=== PATIENT | female | born 1950 | race Caucasian/White ===

== ENCOUNTER 2020-01-25 18:24 | Inpatient (IN) | payer MEDICARE, BC ==
[~2020-01-25] VITALS: Ht 165.1 cm; Wt 65.9 kg
[2020-01-25] MEDS ORDERED: ondansetron/PF 4mg/2ml inj IV ONE (18:35)
--- NOTE | 2020-01-25 18:51 | NUR ---
PT'S DAUGHTER PHONE NUMBER [phone] Addendum: 01/25/20 at 1852 by KINA PT'S DAUGHTER MORIAH, PHONE NUMBER [phone]
[2020-01-25 19:04] LABS: BASOPHILS % (AUTO) 0.7 % (0-1); EOSINOPHILS % (AUTO) 0.3 % (0-6); HEMATOCRIT 36.8 % (35.0-45.0); LYMPHOCYTES % (AUTO) 14.3 % (21-51); MEAN CORPUSCULAR HGB CONC 32.8 g/dL (33.0-36.5); MEAN CORPUSCULAR VOLUME 94.6 FL (78-98); MEAN PLATELET VOLUME 9.6 FL (7.4-10.4); MONOCYTES # (AUTO) 0.6 X10'3 (0-0.9); MONOCYTES % (AUTO) 8.5 % (2-12); NEUTROPHILS # (AUTO) 5.3 X10'3 (1.8-7.7); NEUTROPHILS % (AUTO) 76.2 % (42-75); PLATELET COUNT 169 X10'3 (140-440); RED BLOOD COUNT 3.89 X10'6 (4.20-5.60)
[2020-01-25] MEDS: morphine 2 MG/ML inj. syringe IV PRN (19:12)
[2020-01-25 19:14] LABS: PARTIAL THROMBOPLASTIN TIME 24 SECONDS (22-32)
[2020-01-25 19:20] LABS: ALANINE AMINOTRANSFERASE 19 U/L (12-78); ALBUMIN 3.9 G/DL (3.4-5.0); ALBUMIN/GLOBULIN RATIO 1.4 (1.1-1.5); ALKALINE PHOSPHATASE 83 IU/L (46-116); ANION GAP 9 (8-16); ASPARTATE AMINO TRANSFERASE 18 U/L (10-37); BILIRUBIN,TOTAL 0.3 MG/DL (0.1-1.0); BLOOD UREA NITROGEN 13 MG/DL (7-18); BUN/CREATININE RATIO 13.5 (6.6-38.0); CALCIUM 9.2 MG/DL (8.5-10.1); CHLORIDE 108 MMOL/L (99-107); CREATININE 0.96 MG/DL (0.40-0.90); GLUCOSE 114 MG/DL (70-104); POTASSIUM 4.2 MMOL/L (3.5-5.1); SODIUM 142 MMOL/L (135-145); TOTAL CARBON DIOXIDE 25.3 MMOL/L (24-32); TOTAL PROTEIN 6.7 G/DL (6.4-8.2); eGFR 58 ML/MIN
[2020-01-25] MEDS ORDERED: SYN0.088T PO ×2 (19:52)
[2020-01-25] MEDS ORDERED: GABA600T13 PO (19:52)
[2020-01-25] MEDS ORDERED: GABA-530 PO (19:52)
[2020-01-25] MEDS ORDERED: ATOR10TA87 PO (19:56)
[2020-01-25] MEDS ORDERED: levoTHYROXINE 75mcg tablet PO SCH (20:35)
[2020-01-25] MEDS ORDERED: docusate sod 100mg capsule PO PRN (20:40)
[2020-01-25] MEDS ORDERED: magnesium 2GM in 50ml NS 50 ML IV PRN (20:40)
[2020-01-25] MEDS ORDERED: morphine 2 MG/ML inj. syringe IV PRN ×2 (20:40)
[2020-01-25] MEDS ORDERED: magnesium 4gm in 100ml NS 100 ML IV PRN (20:40)
[2020-01-25] MEDS ORDERED: acetaminophen 325mg tablet PO PRN (20:40)
[2020-01-25] MEDS ORDERED: potassium CL 10mEq/100ml bag 100 ML IV PRN ×2 (20:40)
[2020-01-25] MEDS ORDERED: potassium Cl 20 mEq SR tablet PO PRN ×2 (20:40)
[2020-01-25] MEDS ORDERED: ondansetron/PF 4mg/2ml inj IV PRN (20:40)
[2020-01-25 21:50] VITALS: BP 139/64
[2020-01-25] MEDS: normal saline 1000ml 1,000 ML IV SCH (22:46)
[2020-01-25] MEDS: gabapentin 300mg capsule PO SCH (22:48)
[2020-01-26] VITALS (26 sets, daily range): BP systolic 89–130; BP diastolic 38–85
[2020-01-26] MEDS: morphine 2 MG/ML inj. syringe IV PRN ×2 (02:20→05:24)
[2020-01-26 06:10] LABS: BASOPHILS % (AUTO) 0.8 % (0-1); EOSINOPHILS # (AUTO) 0.1 X10'3 (0-0.9); EOSINOPHILS % (AUTO) 1.7 % (0-6); HEMATOCRIT 32.5 % (35.0-45.0); HEMOGLOBIN 10.7 g/dl (12.0-16.0); LYMPHOCYTES # (AUTO) 1.2 X10'3 (1.1-4.8); LYMPHOCYTES % (AUTO) 22.9 % (21-51); MEAN CORPUSCULAR HEMOGLOBIN 31.1 PG (27.0-31.0); MEAN CORPUSCULAR HGB CONC 32.9 g/dL (33.0-36.5); MEAN CORPUSCULAR VOLUME 94.7 FL (78-98); MEAN PLATELET VOLUME 10.4 FL (7.4-10.4); MONOCYTES # (AUTO) 0.6 X10'3 (0-0.9); MONOCYTES % (AUTO) 10.7 % (2-12); NEUTROPHILS # (AUTO) 3.5 X10'3 (1.8-7.7); NEUTROPHILS % (AUTO) 63.9 % (42-75); PLATELET COUNT 139 X10'3 (140-440); RED BLOOD COUNT 3.43 X10'6 (4.20-5.60); RED CELL DISTRIBUTION WIDTH 14.4 % (11.5-14.5); WHITE BLOOD COUNT 5.4 X10'3 (4.5-11.0)
[2020-01-26 06:21] LABS: ALANINE AMINOTRANSFERASE 18 U/L (12-78); ALBUMIN 3.3 G/DL (3.4-5.0); ALBUMIN/GLOBULIN RATIO 1.3 (1.1-1.5); ALKALINE PHOSPHATASE 71 IU/L (46-116); ANION GAP 7 (8-16); ASPARTATE AMINO TRANSFERASE 14 U/L (10-37); BILIRUBIN,TOTAL 0.4 MG/DL (0.1-1.0); BLOOD UREA NITROGEN 12 MG/DL (7-18); CALCIUM 8.8 MG/DL (8.5-10.1); CHLORIDE 109 MMOL/L (99-107); GLUCOSE 97 MG/DL (70-104); MAGNESIUM 1.8 MG/DL (1.5-2.4); POTASSIUM 3.9 MMOL/L (3.5-5.1); SODIUM 141 MMOL/L (135-145); TOTAL CARBON DIOXIDE 25.2 MMOL/L (24-32); TOTAL PROTEIN 5.9 G/DL (6.4-8.2); eGFR 55 ML/MIN
--- NOTE | 2020-01-26 06:24 | NUR ---
Patient in room ORTHO 4022. I have received report from Jennifer PRIDE and had the opportunity to ask questions and assume patient care.
--- NOTE | 2020-01-26 06:28 | NUR ---
Problems reprioritized. Patient report given, questions answered & plan of care reviewed with SHANNEN Meeks. Addendum: 01/26/20 at 0629 by Jennifer Graves RN Amended: Links added.
[2020-01-26] MEDS: normal saline 1000ml 1,000 ML IV SCH ×2 (07:46→17:56)
[2020-01-26] MEDS ORDERED: levoTHYROXINE 88mcg tablet PO SCH (08:00)
[2020-01-26] MEDS: K and/or MAG REPLACEMENT MC SCH ×2 (08:00→20:00)
[2020-01-26] MEDS ORDERED: morphine 2 MG/ML inj. syringe IV PRN ×3 (09:10→11:45)
[2020-01-26] MEDS ORDERED: HYDROcodone/acetaminophen 5mg/325mg tablet PO PRN (10:00)
[2020-01-26] MEDS ORDERED: AMLO5TAB PO (10:07)
[2020-01-26] MEDS ORDERED: IRBE150T24 PO (10:07)
[2020-01-26] MEDS: HYDROcodone/acetaminophen 10/325mg tab PO PRN (10:09)
[2020-01-26] MEDS ORDERED: ringers solution, lacted 1,000 ML IV SCH (11:44)
[2020-01-26] MEDS ORDERED: proCHLORperazine 10 MG/2 ml inj IV PRN (11:45)
[2020-01-26] MEDS ORDERED: meperidine/PF 25mg/ml syringe IV PRN ×3 (11:45)
[2020-01-26] MEDS ORDERED: morphine 4 MG/ML inj SYRINge IV PRN (11:45)
[2020-01-26] MEDS ORDERED: ondansetron/PF 4mg/2ml inj IV PRN (11:45)
[2020-01-26] MEDS ORDERED: midazolam 2 mg/2 ml injection ONE (11:59)
[2020-01-26] MEDS ORDERED: fentaNYL /PF 50mcg/ml 5ml ampule ONE (12:01)
--- NOTE | 2020-01-26 12:02 | NUR ---
Problems reprioritized. Patient report given, questions answered & plan of care reviewed with Pepe PRIDE.
[2020-01-26] MEDS: gabapentin 300mg capsule PO SCH ×2 (12:30→20:37)
[2020-01-26] MEDS ORDERED: sevoflurane 250ml liquid IH ONE (12:35)
[2020-01-26] MEDS ORDERED: clindamycin phosphate 150mg/ml inj. ONE (12:53)
--- NOTE | 2020-01-26 13:00 | NUR ---
Report received from brushing operator, Liz (Pt currently in OR).
--- NOTE | 2020-01-26 14:13 | NUR ---
Problems reprioritized. Patient report given, questions answered & plan of care reviewed with Stephanie on med-surgical physician assistant.
[2020-01-26] MEDS ORDERED: dexamethasone sod phosphate 4mg/ml inj. ONE (14:35)
[2020-01-26] MEDS ORDERED: propofol inj 20 ML IV ONE (14:35)
[2020-01-26] MEDS ORDERED: glycopyrrolate 0.2mg/ml inj ONE (14:35)
[2020-01-26] MEDS ORDERED: neostigmine methylsulfate 1 MG/ML 10ml vial ONE (14:35)
[2020-01-26] MEDS ORDERED: LIDOcaine 1%/PF 5ML 10 MG/ML VIAL ONE (14:35)
[2020-01-26] MEDS ORDERED: ROPIVAcaine 0.5% (5mg/ml) 30ml vial ONE (14:35)
[2020-01-26] MEDS ORDERED: ondansetron/PF 4mg/2ml inj ONE (14:35)
[2020-01-26] MEDS ORDERED: rocuronium 10mg/ml inj IV ONE (14:35)
--- NOTE | 2020-01-26 14:38 | NUR ---
Received from OR via BED, accompanied by Anesthesiologist DR ROGERS and report given by Anesthesiologist. PT VERY DROWSY, NO S/S OF DISTRESS/DISCOMFORT, LEFT KNEE W/ZACH WRAP COVERING INCISION CDI, LEFT LEG IN LEG BRACE. Addendum: 01/26/20 at 1533 by Ciera Maldonado RN Amended: Links added.
--- NOTE | 2020-01-26 16:50 | NUR ---
Report received from COMMISSARY WORKERCiera
--- NOTE | 2020-01-26 16:58 | NUR ---
Report called to receiving nurse. Transferred via BED, NO Belongings, SIDE RAILS UP X 2, BLL, CALL LIGHT GIVEN, ATTACHED TO VS MACHINE, NURSES AIDE AT BEDSIDE TO RECEIVE PT. Special Issues communicated to receiving nurse. YES. Addendum: 01/26/20 at 1720 by Ciera Maldonado RN Amended: Links added.
--- NOTE | 2020-01-26 18:25 | NUR ---
Problems reprioritized. Patient report given, questions answered & plan of care reviewed with Monica RN.
--- NOTE | 2020-01-26 19:30 | NUR ---
pt denies pain to surgical site (left knee); states minimal chronic neck pain; aware to call if PRN analgesic is needed Addendum: 01/27/20 at 0158 by Diandra Ogden RN Amended: Links added.
--- NOTE | 2020-01-26 19:30 | NUR ---
pt states numbness & tingling to bilat feet has not changed post op; states left is greater than right; pt able to move left foot (has good CSM to bilat feet (skin warm; color good) Addendum: 01/27/20 at 0158 by Diandra Ogden RN Amended: Links added.
[2020-01-26] MEDS: clindamycin 600mg/D5W 50ml 50 ML IV SCH (20:36)
[2020-01-27 00:27] VITALS: BP 96/45
[2020-01-27] MEDS: clindamycin 600mg/D5W 50ml 50 ML IV SCH ×3 (02:08→13:08)
[2020-01-27 04:00] VITALS: BP 101/50
[2020-01-27] MEDS: normal saline 1000ml 1,000 ML IV SCH ×2 (04:31→12:36)
[2020-01-27 05:22] LABS: BASOPHILS % (AUTO) 0.1 % (0-1); EOSINOPHILS % (AUTO) 0 % (0-6); HEMATOCRIT 30.3 % (35.0-45.0); LYMPHOCYTES # (AUTO) 0.7 X10'3 (1.1-4.8); MEAN CORPUSCULAR HEMOGLOBIN 31.3 PG (27.0-31.0); MEAN CORPUSCULAR HGB CONC 33.1 g/dL (33.0-36.5); MEAN CORPUSCULAR VOLUME 94.7 FL (78-98); MEAN PLATELET VOLUME 10.6 FL (7.4-10.4); MONOCYTES # (AUTO) 0.7 X10'3 (0-0.9); MONOCYTES % (AUTO) 10.7 % (2-12); NEUTROPHILS # (AUTO) 5.5 X10'3 (1.8-7.7); NEUTROPHILS % (AUTO) 79.2 % (42-75); PLATELET COUNT 126 X10'3 (140-440); RED CELL DISTRIBUTION WIDTH 14.1 % (11.5-14.5)
[2020-01-27 05:47] LABS: ALANINE AMINOTRANSFERASE 14 U/L (12-78); ALBUMIN 2.9 G/DL (3.4-5.0); ALBUMIN/GLOBULIN RATIO 1.1 (1.1-1.5); ALKALINE PHOSPHATASE 69 IU/L (46-116); ANION GAP 6 (8-16); ASPARTATE AMINO TRANSFERASE 11 U/L (10-37); BILIRUBIN,TOTAL 0.4 MG/DL (0.1-1.0); BLOOD UREA NITROGEN 12 MG/DL (7-18); BUN/CREATININE RATIO 12.6 (6.6-38.0); CALCIUM 8.6 MG/DL (8.5-10.1); CHLORIDE 108 MMOL/L (99-107); CREATININE 0.95 MG/DL (0.40-0.90); GLUCOSE 108 MG/DL (70-104); MAGNESIUM 1.6 MG/DL (1.5-2.4); POTASSIUM 4.2 MMOL/L (3.5-5.1); SODIUM 140 MMOL/L (135-145); TOTAL CARBON DIOXIDE 26.3 MMOL/L (24-32); TOTAL PROTEIN 5.6 G/DL (6.4-8.2); eGFR 58 ML/MIN
[2020-01-27 06:30] VITALS: BP 118/54
--- NOTE | 2020-01-27 06:30 | NUR ---
Patient in room EDU 348. I have received report from SHANNEN Anderson and had the opportunity to ask questions and assume patient care.
[2020-01-27] MEDS: K and/or MAG REPLACEMENT MC SCH (06:36)
[2020-01-27 11:00] VITALS: BP 114/50
[2020-01-27] MEDS ORDERED: enoxaparin 40mg/0.4ml syringe SUBCUT SCH (12:20)
[2020-01-27] MEDS: gabapentin 300mg capsule PO SCH (13:08)
[2020-01-27] MEDS: HYDROcodone/acetaminophen 10/325mg tab PO PRN ×2 (13:15→17:53)
[2020-01-27] MEDS ORDERED: ENOX40DI11 SUBCUT (17:08)
--- NOTE | 2020-01-27 18:27 | NUR ---
Patient in room EDU 348. I have received report from SHANNEN Brown and had the opportunity to ask questions and assume patient care.
[2020-01-27 18:30] VITALS: BP 159/70
--- NOTE | 2020-01-27 18:40 | NUR ---
Patient DC in wheelchair, assisted by floor aide to waiting vehicle in lobby. IV dc. VS: 159/70 BP, 93%RA, 20RR, 98F temp, 7/10 pain. All personal belongings with patient. Discharged information given to patient. Questions and concerns answered.
--- NOTE | 2020-01-27 18:40 | NUR ---
DC inst provided to pt. IV DC'd, tip intact. All belongings sent w/pt. WC to car.
== END 2020-01-27 18:40 | disposition home health service (06) | DRG 982 ==
LOC: ER 18:25 → ED HOLD 20:36 → ORTHO 4S 21:35 → SUR 3N 01-26 14:54
PROVIDERS: ADMIT Family Medicine; ATTEND Internal Medicine
PROC: 3E0T3BZ Introduction of Anesthetic Agent into Peripheral Nerves and Plexi, Percutaneous Approach (ICD-10-PCS; 2020-01-26)
PROC: 0QSF04Z Reposition Left Patella with Internal Fixation Device, Open Approach (ICD-10-PCS; principal; 2020-01-26 12:35)
DX: D63.8 Anemia in other chronic diseases classified elsewhere (principal); S82.002A Unspecified fracture of left patella, initial encounter for closed fracture; I10 Essential (primary) hypertension; E03.9 Hypothyroidism, unspecified; W01.0XXA Fall on same level from slipping, tripping and stumbling without subsequent striking against object, initial encounter; Z88.0 Allergy status to penicillin; Z88.1 Allergy status to other antibiotic agents; Z88.8 Allergy status to other drugs, medicaments and biological substances; Z82.49 Family history of ischemic heart disease and other diseases of the circulatory system; Z80.3 Family history of malignant neoplasm of breast; Y93.89 Activity, other specified; Y92.89 Other specified places as the place of occurrence of the external cause; Y99.8 Other external cause status; Z79.899 Other long term (current) drug therapy
CPT/HCPCS: 36415; 71045; 73560; 76000; 80053; 82948; 83735; 84443; 85025; 85610; 85730; 87081; 93005; 96374; 97116; 97161; 97530; 99285; A4215; A4618; A6446; A6449; A7000; C1713; G0378; J1100; J1650; J2250; J2270; J2405; J2704; J2710; J2795; J3010; J3490; J7030; J7120